=== PATIENT | male | born 1965 | race Caucasian/White ===

== ENCOUNTER → 2017-07-20 12:32 | Outpatient (CLI) | payer MEDICARE, MEDICAID, SELFPAY ==
--- NOTE | 2017-07-20 12:45 | MRI_ITS ---
STUDY: MRI RIGHT ANKLE WITHOUT CONTRAST REASON FOR EXAM: Heel pain since 2008, calcaneal fracture 2001. TECHNIQUE: Standardized fat and water weighted pulse sequences were obtained in all 3 orthogonal planes. COMPARISON: None. FINDINGS: Normal subcutis adipose space. Normal posterior tibialis tendon. Normal flexor digitorum longus tendon. Normal flexor hallucis longus tendon. Normal peroneus longus and brevis tendons. Normal tibialis anterior tendon. Normal extensor hallucis longus tendon. Normal extensor digitorum longus tendons. Normal Achilles tendon and teno-osseous insertion. Normal plantar fascia. There is chronic healed fracture deformity of the calcaneus. Normal intrinsic muscles of the rearfoot. Normal distal tibiofibular syndesmotic ligamentous complex. There is scarring with thickening of the anterior talofibular ligament (T2 axial image 14). Normal calcaneofibular and posterior talofibular ligaments. Normal subtalar ligaments and sinus tarsi. Normal deltoid ligamentous complexes. Normal plantar calcaneonavicular (spring) ligament. There is mild subchondral cystic change of the medial aspect of the superior talar dome (inversion recovery sagittal image 15; T2 coronal images 16, 17). There is arthrosis of the posterior subtalar joint with chondral thinning at the lateral aspect of the joint, subchondral cystic change/bone edema of the calcaneus (T2 coronal images 11-13; inversion recovery sagittal images 7-9) and mild bone edema of the lateral process of the talus (T2 coronal images 14, 15). Normal talonavicular articulation. Normal calcaneocuboid articulation. Normal navicular-cuneiform articulations. There is cystic change of the lateral malleolus (T2 coronal image 12). There is an os trigonum. MRI/Lower Ext Joint Only (Routine) IMPRESSION: Posterior subtalar arthrosis. Scarring of the anterior talofibular ligament. Chronic healed fracture deformity of the calcaneus. Mild subchondral cystic change of the medial aspect of the talar dome. Electronically Signed: Moy Shine MD at 10:26 EST Tel , Service support ,
== END ==
PROVIDERS: Visit Provider Podiatrist
DX: M13.871 Other specified arthritis, right ankle and foot (principal)
CPT/HCPCS: 73721

== ENCOUNTER → 2017-08-21 16:08 | Outpatient (CLI) | payer MEDICARE, MEDICAID, SELFPAY ==
[2017-08-21 18:38] LABS: Absolute Lymphocyte Count 2.53 X10^3/ul (0.83-4.51); Absolute Neutrophil Count 4.5 X10^3/uL (2.0-7.7); Basophil# 0.04 X10^3/uL; Basophil% 0.5 % (0-1); Eosinophil# 0.18 X10^3/uL; Eosinophils% 2.3 % (0-5); Hematocrit 43.6 % (40-54); Hemoglobin 15.3 g/dl (13.0-16.5); Lymphocyte # 2.53 X10^3/ul (4.0); Lymphocyte % 31.7 % (19-41); Mean Corp Hgb Conc 35.1 g/gl (32-36); Mean Corpuscular Hgb 34.2 pg (27.0-32.0); Mean Corpuscular Volume 97.5 fL (80-94); Monocyte# 0.68 X10^3/uL; Monocyte% 8.5 % (0-10); Neutrophil # 4.52 X10^3/uL (2.7-7.7); Neutrophil % 56.7 % (47-70); Platelet Count 284 K/mm3 (150-450); RBC Distribution Width CV 12.8 % (11.6-14.6); RBC Distribution Width SD 45.4 fl (35.1-43.9); Red Blood Count 4.47 M/mm3 (4.6-6.2)
[2017-08-21 18:39] LABS: POSITIVE COUNT NO; POSITIVE DIFFERENTIAL NO; POSITIVE MORPHOLOGY NO
[2017-08-21 18:46] LABS: Vitamin D,25 Hydroxy 23.5 ng/mL (29.95-100.01)
[2017-08-21 18:47] LABS: AST(SGOT) 12 U/L (15-37); Alanine Aminotransfer ALT/SGPT 16 U/L (16-61); Albumin, Serum 3.9 g/dL (3.2-5.0); Alkaline Phosphatase 92 U/L (45-117); Anion Gap 6 (5-15); BUN 14 mg/dL (7-18); BUN/Creat Ratio 13.2 RATIO (10-20); Calcium,Total 8.6 mg/dL (8.5-10.1); Chloride 107 mmol/L (98-107); Creatinine, Serum 1.06 mg/dL (0.70-1.30); EST Glomerular Filtration Rate 77 mL/min (>60); Est Glom Filt Rate - Afr Amer 94 mL/min (>60); Globulin 3.8 g/dL (2.2-4.2); Glucose 81 mg/dL (74-106); Potassium 3.7 mmol/L (3.5-5.1); Protein, Total 7.7 g/dL (6.4-8.2); Sodium Level 141 mmol/L (136-145)
== END ==
PROVIDERS: Family Provider Family Medicine; PCP Family Medicine; Visit Provider Family Medicine
DX: Z01.818 Encounter for other preprocedural examination (principal)
CPT/HCPCS: 36415; 80053; 82306; 85025

== ENCOUNTER 2017-09-04 05:43 | Day surgery (SDC) | payer MEDICARE, MEDICAID, SELFPAY ==
--- NOTE | 2017-09-03 | BON_PTH ---
PATIENT: JESSI MONTES V LOC: [facility] [place] U[place][id number] AGE/SX: 52/M ROOM: RE09/04/[address]: Dr. Agustin Haq DPM : 1965 BED: DIS: 09/04/2017 SPEC #: [id number] RECD: 09/04/17 13:39 STATUS: SHERRI MORENITA #: [id number] JIMMY: 09/03/17 00:[address]: Agustin Haq DEPT: SURGICAL PATHOLOGY RECD BY: Shaw Flannery ENTERED: 09/04/17 13:39 SP TYPE: Bone OTHR DR: Dr. 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 No evidence of acute osteomyelitis. AM:linda 09/09/17 MICROSCOPIC DESCRIPTION Slides are reviewed. GROSS DESCRIPTION Received in fixative is one container labeled with the patient's name and designated first and second metatarsal head, right foot. The specimen consists of a piece of paulino-white bone measuring 2.5 x 1.5 x 0.5 cm. Also present in the container are multiple pieces of bone measuring in aggregate 2 x 1.5 x 0.3 cm. The largest piece shows the articular surface with focal area of erosion. Clinical Business Analyst sections are submitted in one cassette after decalcification. / SJ:linda 09/04/17 TC:5 CPT: 75105, 26697
[2017-09-04 06:07] VITALS: BP 142/87; PULSE 58; RESP 16; TEMP 36.6; O2SAT 97; BMI 23.1
--- NOTE | 2017-09-04 06:51 | RAD_ITS ---
STUDY: X-RAY - RIGHT FOOT CLINICAL: Male, 52 years old. Intraoperative digital nondiagnostic images of arthroplasty. TECHNIQUE: 3 intraprocedural digital nondiagnostic view(s) of the foot. COMPARISON: None. FINDINGS: 11 seconds of fluoroscopy time were utilized for a total dose of 1.1432 cGy/cm. 3 intraoperative digital images show placement of arthroplasty at the second metatarsophalangeal joint. RAD/Foot min 3 Views IMPRESSION: Intraoperative digital nondiagnostic images as described. Electronically Signed: Chester Pierson MD at 11:14 EDT , Service support ,
[2017-09-04] MEDS: Cefazolin 2 GM in 0.9% Normal Saline 100 ML IV (07:29)
[2017-09-04] MEDS: Bupivacaine Mpf 0.5% 30 ML VIAL (07:35)
[2017-09-04 08:53] VITALS: BP 122/81; BP 142/87; PULSE 64; RESP 18; TEMP 36.4; O2SAT 95
--- NOTE | 2017-09-04 08:54 | PCM.DC.POD ---
Discharge Diet: Light diet - advance as tolerated Discharge Activity: May Not Drive, Use Crutches Weight Bearing Status: No weight bearing - No weightbearing right foot Keep extremity elevated above heart level: Right Leg - Keep right foot elevated for at least 50 minutes of every hour using pillows Call your doctor if your incision/area has: Continuous Slow Oozing, Sudden Increased Bleeding, Increased Redness, Foul Smelling Discharge Call your doctor if you observe: Fever of 101 or Higher, Shortness of breath, Chest pain, Increased palpitations (irregular heartbeat), Calf discomfort, Uncontrolled pain Cleanse incision/area with: Do not get Incision Wet, Keep Dressing Clean & Dry Allergies/Adverse Reactions: Allergies No Known Allergies Allergy (Verified 08/27/17 12:53) Medications to take at Discharge Hydrocodone/Acetaminophen [Vicodin 5-300 mg Tablet] 1 - 2 tab PO Q6H PRN PRN 3 Days #30 tab 09/04/17 The following prescriptions were given: Hydrocodone/Acetaminophen [Vicodin 5-300 mg Tablet] 1 - 2 tab PO Q6H PRN PRN 3 Days #30 tab PRN Reason: Pain Primary Care Physician: Mary Muñoz MD [Primary Care Provider] - Please Follow Up With: Agustin Haq DPM When: within 1 week or sooner if needed
--- NOTE | 2017-09-04 08:58 | OP.PCM_ITS ---
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 2nd MTPJ implant arthroplasty, right foot refrigerator glazier: Dr Elkins Type of Anesthesia:: General Specimen's removed: Bone/cartilage from 1st and 2nd metatarsal head, right foot - send to pathology Description of Procedure: Indications: This is a 52 year old gentleman with painful 1st and 2nd metatarsal phalagneal joints (MTPJ) due to osteoarthritis. Patient has pain, with limited range of motion. Osteoarthritis was seen on xrays of the foot. This has been treated with extensive conservative/nonsurgical management, but symptoms persists and he continues to have pain and symptoms. He elected to undergo surgery. We discussed the procedures. We reviewed the rationale of each as well as the possible benefits, risks, potential complications goals and expectations of each. This was discussed with him in great detail. Typical post op recovery was reviewed with him. Advised him the increased risks with smoking/ tobacco use, including nonhealing and nonunion, along with increased chance of all other potential complications. He expressed understanding and agreement, and related he was going to quit smoking. The consent forms were reviewed with him in detail, and he freely signed them. No guarantees were given. All of her questions were answered. Operative Procedure: The patient was brought back into the operating room and was placed on the operating room table in the supine position. He was carefully secured to the operating room table with a safety belt around his waist. A time out was performed and the patient was properly identified and the surgical plan was confirmed. The patient received 2 grams of IV Ancef for antibiotic prophylaxis. A well padded pneumatic tourniquet was applied around the right ankle. The patient did receive general anesthesia per the anesthesiologist. The skin was cleansed with 70% Isopropyl alcohol, and 10mL of 0.5% Bupivacaine plain was given as a 1st and 2nd ray block on the right foot. The right foot was scrubbed, prepped, draped in the usual aseptic fashion. A timeout was performed and the patient was properly identified and the surgical plan was confirmed. The right foot was elevated for 3 minutes and the right ankle pneumatic tourniquet was inflated to 250mmHg. Attention was directed to the right 1st MTPJ. There as noted to be significant limited range of motion present, with grinding consistent with hallux rigidus and osteoarthritis. A linear longitudinal skin incision was made overlying the dorsal medial 1st MTPJ, medial to the Extensor Hallucis Longus tendon using a 15 scalpel blade. Careful blunt dissection was completed down through the subcutaneous tissue layer, down to the 1st MTPJ capsule, which was incised with a 15 scalpel blade. The 1st MTPJ capsule was partially reflected exposing the dorsal, lateral, and medial aspect of the 1st metatarsal head and base of the hallux proximal phalanx. There were osteophytes around the dorsal 1st metatarsal head as well as the dorsal aspect of the base of the hallux proximal phalanx. The was a large dorsal eminence present to the dorsal 1st metatarsal head. The cartilage on the dorsal half of the 1st metatarsal head was worn away and unhealthy. There was a osteochondral lesion to the dorsal medial 1st metatarsal head. There were significant adhesions of the sesamoid apparatus. The adhesions of the sesamoid apparatus were freed up using a McGlamry elevator. Using a powered sagittal saw the dorsal eminence and the dorsal 1st metatarsal head was resected. This was sent to pathology for further evaluation. The osteophytes were resected using a bone cutting rongeur. Resection of the dorsal aspect of the 1st metatarsal head and osteophytes was confirmed using intra operative fluoroscopy, without the use of a p 3 armament/ordnance ima technician. The osteochondral lesion was drilled subchondrally using a 0.062 inch Kwire. At this time the 1st MTPJ was put through range of motion and it was gliding normally and smoothly, with no impingement present. There was now 90 degrees of dorsiflexion of the hallux, this was confirmed using intra operative flouroscopy without a doctor of radiology. The remaining joint appeared healthy and viable. The site was flushed out with copious amounts of normal saline solution. The joint capsule was reapproximated in neutral position using 3-0 Vicryl, the subcutaneous tissue layer was reapproximated using 3-0 Vicryl, the skin was reapproximated using 3-0 Monocryl. Attention was directed to the 2nd MTPJ, there was limited range of motion with some grinding present consistent with osteoarthritis. Using a 15 blade a linear longitudinal skin incision was overlying the dorsal lateral aspect of the 2nd metatarsal phalangeal joint (MTPJ). Careful blunt dissection was completed down through the subcutaneous layer to the dorsal 2nd MTPJ capsule. The capsule of the 2nd MTPJ was identified and was carefully incised dorsally, it was carefully reflected from the dorsal, medial and lateral aspect, exposing the 2nd metatarsal head. There was noted to be significant degenerative changes of the 2nd metatarsal head with yellow nonviable cartilage, with central cartilage defect. The cartilage on the base of the 2nd toe proximal phalanx did appear healthier and more viable. A guide wire was placed centrally and perpendicular to the 2nd metatarsal head and was placed down the shaft of the 2nd metatarsal. This was checked using intraoperative fluoroscopy. A step drill was used to prepare the screw hole to the 2nd metatarsal head. The 7mm taper post fixation component was inserted in standard fashion. A reamer was using to remove the nonviable damaged cartilage and bone to creat a socket for the implant. The excised bone / cartilage was sent to pathology (with the resected portion of the 1st metatarsal head) for further evaluation. All bone ledges were removed from the 2nd metatarsal head. The Arthrosurface implant was ready to be inserted. The Arthrosurface implant was placed into the prepared distal 2nd metatarsal surface. It was tamped in place. At this time, the implant was noted to be stable and in good position, this was confirmed using intra operative fluoroscopy without the use of a doctor of radiology. There was good smooth normal range of motion to the 2nd MTPJ with no grinding, popping or clicking. The site was flushed out with copious amounts of normal saline solution. The joint capsule was reapproximated using 3-0 Vicryl, the subcutaneous tissue layer was reapproximated using 3-0 Vicryl, and the skin was reapproximated using 3-0 Monocryl. Cavilon was painted to the sutured skin edges and steristrips were applied across the sutured skin incisions. All vital structure, including all vital neurovascular structures were properly identified and protected as necessary throughout the procedure. The pneumatic tourniquet was deflated, there was immediate return of vascular flow to the foot and all toes. CFT < 2 seconds to all toes, and had normal temperature gradient present. This remained like this for the rest entirety of the procedure. An additional 10mL of 0.5% Bupivacaine plain was given as a local nerve block around the 1st and 2nd rays of the right foot for post operative pain control. A dressing was applied which consisted of Betadine soaked adaptic, 4x4 gauze, kerlix and rm dressing to the right foot. The patient tolerated the above operative procedure well at the anesthesia well with no complications. The patient was transported to the recovery room with vital signs stable and in good condition. Post operative orders were placed. Post operative instructions were reviewed with patient today. No weightbearing right foot, keep right foot elevated for at least 50 minutes of every hour, keep dressing clean, dry and intact. Prescription for Vicodin 5mg/325mg was prescribed: 1-2 tabs PO q 6 hours PRN pain for pain control, as well as Augmentin 500/125mg PO q 12 hours for 5 days to help prevent an infection. He was dispensed a surgical shoe. Post operative xrays were obtained in the recovery room which confirmed 2nd MTPJ implant arthroplasty, 1st MTPJ cheilectomy arthroplasty. Intact implant 2nd metatarsal head. No post operative complications. Otherwise no acute changes and stable xrays. Grafts/Implants Used: 1 Arthrosurface implant 2nd MTPJ, right foot - Complications None
[2017-09-04 09:00] VITALS: BP 134/85; BP 142/87; PULSE 61; RESP 18; O2SAT 95
--- NOTE | 2017-09-04 09:13 | RAD_ITS ---
STUDY: X-RAY - RIGHT FOOT CLINICAL: Male, 52 years old. Postoperative evaluation after arthroplasty. TECHNIQUE: 3 view(s) of the foot. COMPARISON: None. FINDINGS: There is generalized osteopenia. There is an inferior calcaneal spur. Normal visualized subtalar, talonavicular, calcaneocuboid, tarsal and tarsometatarsal articulations. Normal metatarsi. There is mild arthrosis of the first metatarsal phalangeal and interphalangeal joints. An arthroplasty has been placed at the head of the second metatarsal at the metatarsophalangeal joint without complications. The soft tissue structures are unremarkable. RAD/Foot min 3 Views IMPRESSION: Osteopenia with postsurgical changes. No complications noted. Electronically Signed: Chester Pierson MD at 11:30 EDT , Service support ,
[2017-09-04 09:15] VITALS: BP 142/87; BP 147/85; PULSE 59; RESP 18; O2SAT 93
[2017-09-04 09:30] VITALS: BP 142/87; BP 144/94; PULSE 67; RESP 18; TEMP 36.7; O2SAT 94
[2017-09-04 10:16] VITALS: BP 142/87
== END 2017-09-04 10:32 | disposition home or self-care (01) ==
LOC: SDC 05:44 → AC 05:48
PROVIDERS: Family Provider Family Medicine; PCP Family Medicine; Visit Provider Podiatrist
PROC: (CPT 28289; principal; 2017-09-04 07:15)
DX: M19.071 Primary osteoarthritis, right ankle and foot (principal); M20.21 Hallux rigidus, right foot; F17.210 Nicotine dependence, cigarettes, uncomplicated
CPT/HCPCS: 01480; 28289; 28899; 73630; 76000; 88304; 88305; 88311; J7120; J2405

== ENCOUNTER 2017-11-19 09:00 | Outpatient (RCR) | payer MEDICARE, MEDICAID, SELFPAY ==
--- NOTE | 2017-10-22 12:54 | HP.PTEVAL_ITS ---
Patient's Visit Information JESSI MONTES is a 52 year old M referred to Physical Therapy by Agustin Najera with a diagnosis of S/P MTPJ OA/Implant. Date of Evaluation: 10/22/17 Physical Therapist: Jessi Deras PT, - Visit Plan Frequency: 2x /Week Duration: 4 Weeks Plan: Joint mobilization to TCJ, STJ medial glides. Passive stretching for ankle DF and great toe extension. Proprioception exercises. Modalities for swelling. No restrictions per pt. WBAT. Hx of patella fx and femoral nerve injury. - Subjective Subjective: This 52 y/o male presents to physical therapy with s/p 1st and 2nd MTP arthoplasty on done by Dr NAJERA. Pt reports 10 year history of R foot pain. He was NWB for 4 weeks. He transitioned to a walking boot and then progressed to a shoe in about 5 days. No worsening of pain when he transitioned to the shoe. Pt denies any other restrctions from the surgeon. He is having pain in the plantar surfaces of the 1st and 2nd MTC. He does have issues with swelling that gets worse after about an hour activity. Aggrevating factors: walking, weight bearing. Easing factors: rest. Not working, on disability. Surgical hx: severed femoral artery and nerve in 1988. Patella fx. - Pain R foot Pain Intensity (Out of 10): 4 Pain Intensity Range: 10 Comment: Worst pain 6/10. - Objective PALPATION: TTP 1st and 2nd MTP. GAIT: antalgic R LE, early heel off during stance, increased toe out on R LE. ROM: R ankle DF 10, PF 45, IV 17, EV 15, R great toe ext 15. L ankle DF 5, PF 45, IV 20, EV 15. ASSESSORY MOTION: hypomobile TC posterior glide, STC medial glide, metarsal glides. STRENGTH: B ankle gross 5/5 except for plantar flexors. Pain with eversion resistive test. CIRCUMFERENCE: R LE figure 8: 53 cm. - Goals Goal 1:: Pt will be independent with HEP Goal Time Frame: 2-4 Weeks Goal 2:: Pt will demonstrate 30 degrees of great toe extension to improve ambulation effiency. Goal Time Frame: 4-6 Weeks Goal 3:: PT will report ability to ambulate for 30 minutes without increase in pain. Goal Time Frame: 4-6 Weeks Goal 4:: Pt will perform single leg stance for 20 seconds to demonstrate improve proprioception for functional tasks. Goal Time Frame: 4-6 Weeks - Rehabilitation Potential Physical Therapy Diagnosis: Pt is a 52 y/o male s/p 1st and 2nd arthroplasty cheilectomy. He reports a 10 year history of R foot pain. He has a long history of other orthopedic issues that include R patella fx and femoral nerve injruy. He is WBAT in the shoe and has pain with weight bearing. Objective testing shows limited ROM in eversion and great toe extension and hypomobile assessory motion in ankle and mid foot. His activity restrictions include an inability to ambulate for long distances and weight bearing for longer durations. Pt will benefit from skilled therapy to address the above impairments. Rehabilitation Potential: Good - Anticipated Interventions Patient/Client Instruction: Educate patient on: Condition, Plan of Care For the Purpose of:: To decrease pain, To decrease swelling/inflammation, To increase ROM, To improve muscle performance and motor function, To increase tolerance to activity/condition/position, To increase flexibility/ROM Therapeutic Exercise to Include: Strength training, Endurance training, Balance training, Flexibilty training, Neuromotor development, Passive ROM, Active ROM For the Purpose of:: To decrease pain, To decrease swelling/inflammation, To increase ROM, To improve muscle performance and motor function, To improve ability to perform ADL's, To increase tolerance to activity/condition/position, To improve performance and independence with ADL's, To improve gait and locomotor functions, To increase flexibility/ROM, To improve endurance, To improve balance Manual Therapy Techniques to Include: Mobilization, Passive ROM, Soft tissue mobilization For the Purpose of:: To decrease pain, To decrease swelling/inflammation, To increase ROM, To improve muscle performance and motor function, To increase tolerance to activity/condition/position, To improve performance and independence with ADL's, To improve gait and locomotor functions, To increase flexibility/ROM, To improve endurance, To improve balance Cryotherapy (ice pack, ice massage): Yes Ultrasound (thermal/non thermal): Yes Vasopneumatic device: Yes For the Purpose of:: To decrease pain, To decrease swelling/inflammation, To increase ROM, To improve muscle performance and motor function, To increase tolerance to activity/condition/position, To improve performance and independence with ADL's, To improve gait and locomotor functions, To decrease soft tissue restriction, To increase flexibility/ROM, To improve endurance, To improve balance Thank you for the opportunity to evaluate your patient. For Medicare and Medicare HMO plans, please review the plan of care and approve it. It will need to be FAXED BACK to us at [phone] for Medicare purposes. Please let me know if there are questions or concerns regarding this plan of care. Physician Signature: Date:
--- NOTE | 2017-11-19 09:47 | HP.PTDCSUM_ITS ---
HP - PT D/C Summary It has been my pleasure to treat JESSI MONTES under orders from Agustin Haq , for the diagnosis of S/P MTPJ OA/Implant for a total of 9 visit(s). Discharge Date: 11/19/17 Please see the following information for a summary of their discharge status. - Subjective Subjective: Pt reports experiencing some tenderness prior to the session. Feels better than he did previous session. Received inserts from doctor but hasn't tried them yet. Feels confident to be discharged today. - Pain R foot Pain Intensity (Out of 10): 1 - Overall Improvement % Improvement: 75 - Objective Objective/Function: Pt has made good improvement with PT. He has met 3/4 goals. He reports 75% improvement. He is demonstrating 42 degrees of passive great toe extension, SLS for 20 seconds, and improved function on LEFS. His ambulation distance is still impaired but improving. HEP was updated to address continued impairments for the pt to work on at home. - Goals Goal 1:: Pt will be independent with HEP Goal Progress: Goal Met Goal 2:: Pt will demonstrate 30 degrees of great toe extension to improve ambulation effiency. Goal Progress: Goal Met Goal 3:: PT will report ability to ambulate for 30 minutes without increase in pain. Goal Progress: Progressing Goal 4:: Pt will perform single leg stance for 20 seconds to demonstrate improve proprioception for functional tasks. Goal Progress: Goal Met - Plan Plan: Discharge with HEP. - D/C Information Discharge Comments: Pt has met 3/4 PT goals. He is demonstrating 42 degrees of great toe extension, improved proprioception by holding SLS for 20 seconds, and reporting improved function on the LEFS. His ambulation distance is on of his main impairments but this has improved since starting PT. I would expect continue improvement by him adhering to an HEP that addresses his contiuned impairments. If there are questions or concerns regarding this patient's physical therapy, please feel free to call me at [phone]. Thank you for the referral of this patient. Sincerely, Jessi Deras, PT,
== END 2017-11-19 19:00 | disposition home or self-care (01) ==
LOC: PT 09:00
PROVIDERS: Family Provider Family Medicine; PCP Family Medicine; Visit Provider Podiatrist
DX: M19.071 Primary osteoarthritis, right ankle and foot (principal); Z98.890 Other specified postprocedural states
CPT/HCPCS: 97110; 97140; 97162; 97530

== ENCOUNTER → 2017-12-18 09:02 | Outpatient (CLI) | payer MEDICARE, MEDICAID, SELFPAY ==
--- NOTE | 2017-12-18 09:17 | BI_ITS ---
MAMMOGRAPHY - BILATERAL DIAGNOSTIC REASON FOR EXAM: Male, 52 years old. Left breast lump. PERTINENT HISTORY: Non-contributory. TECHNIQUE: Digital bilateral breast pati (3D mammographic acquisition) in the CC and MLO projections. 2-D mediolateral oblique (MLO) and craniocaudad (CC) views of both breasts were obtained. CAD: Full Field Digital Mammography with Computer Added Detection was performed. COMPARISON: None. FINDINGS: Breast Composition: The breasts are almost entirely fatty. There is a 9.6 mm x 1 cm well-defined nodular density in the retroareolar region of the left breast. This corresponds the palpable abnormality. Correlation with ultrasound is recommended. No other significant abnormalities are identified. BI/DIAG MAMM W/CAD, BILAT IMPRESSION: The palpable abnormality corresponds to a 0.96 cm x 1 cm well-defined nodular density in the retroareolar region of the breast. Correlation with ultrasound is recommended. ASSESSMENT CATEGORY: BIRADS Category 0: Incomplete. Need additional imaging evaluation. A letter regarding these results will be sent to the patient by the facility within 30 days. Approximately 10% of breast cancers are not detected by mammography. A normal mammogram should not delay biopsy of a clinically suspicious abnormality. Electronically Signed: Trever Rodriguez MD at 10:21 EDT Tel [phone], Service support ,
--- NOTE | 2017-12-18 09:50 | US_ITS ---
STUDY: ULTRASOUND BREAST - LEFT REASON FOR EXAM: Male, 52 years old. Palpable lump left breast. TECHNIQUE: Axial and longitudinal images of the LEFT breast were performed with a high resolution ultrasound transducer. COMPARISON: Comparison is made with prior mammogram done earlier in the day. FINDINGS: LEFT Breast: The palpable abnormality corresponds to a 1 cm x 1 cm x 0.7 cm cystic nodule with posterior acoustical enhancement. Low-level echoes are seen within it. This nodular density appears to abut the skin surface. This may represent a sebaceous cyst. Clinical correlation is recommended. US/Breast Limited Unilateral IMPRESSION: The palpable abnormality corresponds to a 1 cm x 1 cm x 0.7 cm cystic structure with low-level echoes within it. This abuts the overlying skin surface. A sebaceous cyst to be ruled out. Clinical correlation is recommended. ASSESSMENT CATEGORY: BIRADS Category 2: Benign. A letter regarding these results will be sent to the patient by the facility within 30 days. Electronically Signed: Trever Rodriguez MD at 10:17 EDT Tel [phone], Service support ,
== END ==
PROVIDERS: Family Provider Family Medicine; PCP Family Medicine; Visit Provider Family Medicine
DX: N63.21 Unspecified lump in the left breast, upper outer quadrant (principal)
CPT/HCPCS: 76642; 77062; 77066; G0279

== ENCOUNTER → 2018-01-04 10:33 | Outpatient (CLI) | payer MEDICARE, MEDICAID, SELFPAY ==
--- NOTE | 2018-01-04 08:45 | BRBX_PTH ---
PATIENT: JESSI MONTES V LOC: [facility] U#:[id number] AGE/SX: 60/M ROOM: RE01/04/[address]: Dr. Olga Berrios MD : 1965 BED: DIS: SPEC #: [id number] RECD: 01/04/18 10:34 STATUS: SHERRI MORENITA #: [id number] JIMMY: 01/04/18 08:[address]: Olga Berrios DEPT: SURGICAL PATHOLOGY RECD BY: Noel Obrien ENTERED: 01/04/18 10:39 SP TYPE: BREAST BX OTHR DR: Dr. Mary Muñoz MD Tissues: Left breast, NOS Procedures: Surgery Specimen Level III HEADER OPERATION: Excisional biopsy, left breast PRE-OP DIAGNOSIS: Left breast nodule; sebaceous cyst TISSUE SUBMITTED: Left breast tissue Ischemic time: <1 minute Fixation time: 10.5 hours MICROSCOPIC DIAGNOSIS Left breast nodule, excisional biopsy: Epidermal inclusion cyst. SJ:linda 01/05/18 MICROSCOPIC DESCRIPTION Slides are reviewed. GROSS DESCRIPTION Received in fixative is one container labeled with the patient's name and designated left breast tissue. The specimen consists of multiple irregular fragments of rubbery pink-paulino soft tissue that in aggregate measure 2.2 x 1.3 x 0.2 cm. The specimen is totally submitted in one cassette. / AM:lnida 01/04/18 TC:5 CPT: 24929
== END ==
PROVIDERS: Family Provider Family Medicine; PCP Family Medicine; Visit Provider Surgery
DX: N60.82 Other benign mammary dysplasias of left breast (principal)
CPT/HCPCS: 88304; 88305

== ENCOUNTER → 2018-01-13 15:02 | Outpatient (CLI) | payer MEDICARE, SELFPAY ==
[2018-01-13 16:56] LABS: AST(SGOT) 15 U/L (15-37); Alanine Aminotransfer ALT/SGPT 23 U/L (16-61); Albumin, Serum 3.9 g/dL (3.2-5.0); Alkaline Phosphatase 111 U/L (45-117); Bilirubin, Direct 0.08 mg/dL (0.00-0.30); Protein, Total 7.9 g/dL (6.4-8.2)
[2018-01-15 11:19] LABS: Hep C Antibodies 0.1 s/co ratio (0.0-0.9)
== END ==
PROVIDERS: Family Provider Family Medicine; PCP Family Medicine; Visit Provider Family Medicine
DX: R10.11 Right upper quadrant pain (principal)
CPT/HCPCS: 36415; 80076; 86803

== ENCOUNTER → 2018-03-15 14:56 | Outpatient (CLI) | payer SELFPAY ==
[2018-03-15 17:38] LABS: Absolute Lymphocyte Count 2.47 X10^3/ul (0.83-4.51); Absolute Neutrophil Count 4.1 X10^3/uL (2.0-7.7); Basophil# 0.05 X10^3/uL; Basophil% 0.7 % (0-1); Eosinophil# 0.17 X10^3/uL; Eosinophils% 2.3 % (0-5); Hemoglobin 15.4 g/dl (13.0-16.5); Lymphocyte # 2.47 X10^3/ul (4.0); Lymphocyte % 32.8 % (19-41); Mean Corp Hgb Conc 34.2 g/gl (32-36); Mean Corpuscular Hgb 33.6 pg (27.0-32.0); Mean Platelet Vol. 10.2 fl (6.2-12.0); Monocyte% 9.3 % (0-10); Neutrophil # 4.13 X10^3/uL (2.7-7.7); Neutrophil % 54.9 % (47-70); Platelet Count 270 K/mm3 (150-450); RBC Distribution Width CV 12.9 % (11.6-14.6); RBC Distribution Width SD 45.9 fl (35.1-43.9); Red Blood Count 4.59 M/mm3 (4.6-6.2); White Blood Count 7.5 K/mm3 (4.4-11.0)
[2018-03-15 17:44] LABS: AST(SGOT) 17 U/L (15-37); Alanine Aminotransfer ALT/SGPT 26 U/L (16-61); Albumin, Serum 3.9 g/dL (3.2-5.0); Alkaline Phosphatase 119 U/L (45-117); Anion Gap 5 (5-15); BUN 12 mg/dL (7-18); BUN/Creat Ratio 12.3 RATIO (10-20); Calcium,Total 8.5 mg/dL (8.5-10.1); Chloride 107 mmol/L (98-107); Creatinine, Serum 0.98 mg/dL (0.70-1.30); EST Glomerular Filtration Rate 85 mL/min (>60); Est Glom Filt Rate - Afr Amer 103 mL/min (>60); Glucose 88 mg/dL (74-106); Potassium 4.2 mmol/L (3.5-5.1); Protein, Total 7.9 g/dL (6.4-8.2); Sodium Level 141 mmol/L (136-145)
[2018-03-15 17:48] LABS: POSITIVE COUNT NO; POSITIVE DIFFERENTIAL NO; POSITIVE MORPHOLOGY NO
== END ==
LOC: MFPLAB 14:57
PROVIDERS: Family Provider Family Medicine; PCP Family Medicine; Visit Provider Family Medicine
DX: Z01.818 Encounter for other preprocedural examination (principal)
CPT/HCPCS: 36415; 80053; 85025

== ENCOUNTER 2018-04-02 09:17 | Day surgery (SDC) | payer MEDICARE, MEDICAID, SELFPAY ==
[2018-04-02] VITALS (9 sets, daily range): BP systolic 120–147; BP diastolic 70–99; PULSE 55–81; RESP 16–18; TEMP 36.2–36.5; O2SAT 93–98; BMI 22.9
--- NOTE | 2018-04-02 11:00 | RAD_ITS ---
STUDY: Fluoroscopic RIGHT ANKLE REASON FOR EXAM: Male, 52 years old. Subtalar joint fusion TECHNIQUE: 4 fluoroscopic view(s) of the ankle. COMPARISON: None. FINDINGS: 4 fluoroscopic images are obtained. There are 2 cortical screws transfixing the talar calcaneal joint. The fluoroscopy time recorded is 1 minute 28 seconds. RAD/Ankle min 3 Views IMPRESSION: Intraoperative imaging of the talar calcaneal fusion. Electronically Signed: Valentina Guzman MD at 19:21 EDT Tel , Service support ,
--- NOTE | 2018-04-02 11:00 | BON_PTH ---
PATIENT: JESSI MONTES V LOC: [facility] U#:[id number] AGE/SX: 52/M ROOM: RE04/02/[address]: Dr. Agustin Haq DPM : 1965 BED: DIS: 04/02/2018 SPEC #: [id number] RECD: 04/02/18 16:07 STATUS: SHERRI MORENITA #: [id number] JIMMY: 04/02/18 11:[address]: Agustin Haq DEPT: SURGICAL PATHOLOGY RECD BY: Noel Obrien ENTERED: 04/05/18 11:32 SP TYPE: Bone OTHR DR: Dr. 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 Exostosis of right ankle TISSUE SUBMITTED: Right foot exostosis MICROSCOPIC DIAGNOSIS Bone of right foot, exostosis: Fragments of bone with reparative and reactive change. AM:linda 04/08/18 MICROSCOPIC DESCRIPTION Slides are reviewed. GROSS DESCRIPTION Received in fixative is one container labeled with the patient's name and designated right foot exostosis. The specimen consists of multiple fragments of bone that in aggregate measure 1 x 1 x 0.3 cm. The entire specimen is submitted in one cassette after decalcification. / ANDERS:linda 04/05/18 TC:5 CPT: 94996, 23357
[2018-04-02] MEDS: Cefazolin 2 GM in 0.9% Normal Saline 100 ML IV (12:34)
[2018-04-02] MEDS: Bupivacaine Mpf 0.5% 30 ML VIAL (13:10)
--- NOTE | 2018-04-02 14:40 | OP.PCM_ITS ---
Report of Operation Date of Procedure: 04/02/18 Pre-Operative Diagnosis: Subtalar joint (posterior) arthritis, right. Exostosis right lateral malleolus Post-Operative Diagnosis: Same Surgery/Procedure Performed:: Right subtalar joint arthrodesis. Excision of exostosis right ankle Description of Surgical Findings:: Degenerative changes of the posterior subtalar joint, right Exostosis of the distal lateral malleolus, right certified orthotist practice manager: yes - Dr. 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 Pre-operative xrays and MRI confirmed post-traumatic arthritis. He has significant pain despite nonsurgical management (rest, activity modifications, changes in shoegear, bracing, anti-inflammatories, corticosteroid injections). He has seen Dr. Agarwal in the past as well, who also recommended subtalar joint arthrodesis. Symptoms persist and and are worsening which is affecting and limiting his daily activities. He has elected to proceed forward with surgical options at this time: subtalar joint arthrodesis and resection of the exostosis of the distal lateral malleolus. This has been discussed with him in great detail, we have discussed the possible benefits vs risks and potential complications. We have discussed and reviewed all alternative options. We reviewed and discussed the typical healing time and post operative course. All goals and expectations were discussed and reviewed. He expressed understanding and agreement, he was able to repeat these back. All of his questions were answered. Smoking cessation has been completed. The consent forms were reviewed with him and he freely signed them. No guarantees were given nor implied. Operative Procedure: The patient was brought back into the operating room and was placed on the operating table in the supine position. Patient was carefully secured to the operating room table with a safety belt around his waist. A time out was performed and the patient was properly identified and the surgical plan was confirmed. The patient received 2g of intravenous Ancef for antibiotic prophylaxis. The patient received general anesthesia per the anesthesiologist. A well padded pneumatic tourniquet was applied around his right thigh. The right lower extremity was scrubbed, prepped, and draped using strict aseptic technique. Attention was further directed to the right foot and ankle. There is limited range of motion with grinding and crepitus noted to the subtalar joint consistent with degenerative arthritis. Ankle join range of motion was checked with the knee extended and flexed and was noted to be normal dorsiflexion and plantarflexion. The right foot and ankle were elevated for 3 minutes and the right thigh pneumatic tourniquet was inflated in 300mmHg. Attention was directed to the lateral column were an incision was made overlying the sinus tarsi, from the distal fibula directed toward the 4th metatarsal base. This was done using a 15 blade. Careful dissection was completed down the extensor digitorum brevis muscle belly, which was visualized and was partially reflected superiorly, the lateral capsule and the interosseous ligaments of the subtalar joint were released. The sinus tarsi and subtalar joint (posterior, medial and anterior subtalar joint) were visualized. The subtalar joint cartilage was noted to be worn away, degenerative with bone on bone impingement all consistent with her osteoarthritis to the joint. The subtalar joint was debrided, and all remaining cartilage from the subtalar joint surfaces was removed down to bleeding bone. This was done with a curette and a small bur being sure not to cause osteonecrosis. The site was flushed out with copious amounts of normal saline solution. The joint surfaces were fenestrated to aid fusion using a small drill. The prepped arthrodesis site was packed with cancellous bone chips to also make up operator helper fusion. The heel and subtalar joint were placed in neutral position / vertical position and two 7.0mm cannulated FT compression Arthrex screws were placed across the prepped posterior subtalar joint. This was done using rigid open reduction internal fixation technique. In order to place the screws, a small skin incision was made to the posterior plantar heel and careful dissection was completed down to the posterior calcaneus. Once the screws were placed, there was noted to be good bone to bone compression and contact across the subtalar joint with the prepped subtalar joint surfaces in good alignment. The subtalar joint was rigid and stable. The screws were in good position. This was confirmed with intra-operative fluor oscopy. The surgical site was flushed out with copious amounts of normal saline solution. The subcutaneous tissue layers was reapproximated using 2-0 Vicryl and the skin was reapproximated using 4-0 Monocryl. Attention was directed to the distal lateral malleolus at the level of the exostosis. A skin incision was made overlying the exostosis and careful dissection was completed down to the exostosis. The exostosis was visualized and was resected using a bone cutting rongeur. This was sent to pathology as a specimen. The remaining bone and tissue to the areas was noted to be healthy and viable. The surgical site was flushed out with copious amounts of normal saline solution. The subcutaneous tissue layers was reapproximated using 2-0 Vicryl and the skin was reapproximated using 4-0 Monocryl. The thigh pneumatic tourniquet was deflated and there was immediate return of warmth and reperfusion to the lower extremity including to all digits of the foot; and CFT was noted to be < 2 sec to all five digits on the foot. Total tourniquet time was 94 minutes. Hemostasis was achieved. All vital structures including all vital neurovascular and tendon structures were properly identified, protected, and retracted as necessary throughout the above operative procedure. A dressing was applied which consisted of Betadine soaked adaptic, 4x4 gauze, Kerlix, Webril, and rm bandage and a well padded below the knee posterior splint secured with rm bandages and with the heel offloaded. The patient tolerated the above operative procedure well at the anesthesia well with no complication. The patient was transported to the recovery room with vital signs stable and in good condition. Post operative orders were placed. No weightbearing right foot, keep right foot elevated for at least 50 minutes of every hour, keep dressing and splint clean, dry and intact. Percocet 5mg/325mg tab : 1-2 tabs PO q 6 hours prn pain as well as Xarelto 10mg PO once daily for DVT prophylaxis was prescribed. The patient to follow up with me in 1 week, sooner if needed. Post operative xrays were obtained in the recovery room (3 views foot and ankle as well as calcaneal axial views) - there was noted to be subtalar joint arthrodesis in good alignment and hardware intact, good bone to bone compression in good alignment. No post operative complications seen, no acute problems or compilations seen. Grafts/Implants Used: Two Arthrex 7.0mm FT compression screws - Complications None
--- NOTE | 2018-04-02 14:42 | DCINST_ITS ---
Discharge Diet: Light diet - advance as tolerated Discharge Activity: May Not Drive Weight Bearing Status: No weight bearing - No weightbearing right foot/ankle Keep extremity elevated above heart level: Right Leg - Keep right foot elevated for at least 50 minutes of every hour using pillows, keep heel offloaded Call your doctor if your incision/area has: Continuous Slow Oozing, Foul Smelling Discharge Call your doctor if you observe: Fever of 101 or Higher, Coldness, Increased Pain, Shortness of breath, Chest pain, Calf discomfort, Uncontrolled pain Cleanse incision/area with: Do not get Incision Wet, Keep Dressing Clean & Dry Allergies/Adverse Reactions: Allergies No Known Allergies Allergy (Verified 03/26/18 10:26) Medications to take at Discharge Mushroom Extract 1 dose PO DAILY 03/26/18 Cefadroxil [Duricef] 500 mg PO Q12H 5 Days #10 cap 04/02/18 Oxycodone HCl/Acetaminophen [Percocet 5/325] 1 - 2 tab PO Q6H PRN PRN 3 Days #30 tab 04/02/18 Rivaroxaban [Xarelto] 10 mg PO DAILY 15 Days #15 tab 04/02/18 The following prescriptions were given: Oxycodone HCl/Acetaminophen [Percocet 5/325] 1 - 2 tab PO Q6H PRN PRN 3 Days #30 tab PRN Reason: Pain Cefadroxil [Duricef] 500 mg PO Q12H 5 Days #10 cap Rivaroxaban [Xarelto] 10 mg PO DAILY 15 Days #15 tab Primary Care Physician: Mary Muñoz MD [Primary Care Provider] - Test Results: Test results from this visit will be discussed in further detail at your follow- up appointment, if applicable. Please Follow Up With: Agustin Haq DPM When: within 1 week, sooner if needed
--- NOTE | 2018-04-02 15:01 | RAD_ITS ---
STUDY: X-RAY - RIGHT FOOT CLINICAL: Male, 52 years old. Post operative fusion TECHNIQUE: 3 view(s) of the foot. COMPARISON: None. FINDINGS: There are 2 cortical screws transfixing the talar calcaneal joint. There is a distal second digit replacement. There is been a postoperative resection of the distal fifth metatarsal. There is a splint overlying the bony structures limiting visualization. Allowing for the overlying material there is a lobulated appearance of the navicular bone with a possible os navicularis potentially pseudoarticulation with the talus. Normal visualized subtalar, calcaneocuboid, tarsometatarsal articulations. Postoperative metatarsophalangeal joint of the great toe. Normal tibial and fibular sesamoid bones. Normal interphalangeal joint of the great toe. Normal phalanges of the great toe. Normal second through fifth metatarsophalangeal joints. Normal interphalangeal joints and phalanges of the lesser toes. RAD/Foot min 3 Views IMPRESSION: Postoperative changes status post fusion of the calcaneal talar joint. Postoperative change of the second and first metatarsals. Allowing for the overlying material there an elongated appearance of the navicular bone with a possible os navicularis potentially pseudoarticulation with the talus. Electronically Signed: Valentina Guzman MD at 20:04 EDT Tel , Service support ,
--- NOTE | 2018-04-02 15:01 | RAD_ITS ---
STUDY: X-RAY - RIGHT CALCANEUS REASON FOR EXAM: Male, 52 years old. Arthrodesis TECHNIQUE: 2 view(s) of the calcaneus were obtained. COMPARISON: None. FINDINGS: There is a splint overlying the calcaneus. There are 2 long cortical screws transfixing the talocalcaneal joint. There is a visualized plantar spur. RAD/Calcaneus min 2 Views IMPRESSION: Status post fusion of the talar calcaneal joint. Electronically Signed: Valentina Guzman MD at 20:01 EDT Tel , Service support ,
--- NOTE | 2018-04-02 15:01 | RAD_ITS ---
STUDY: X-RAY - RIGHT ANKLE REASON FOR EXAM: Male, 52 years old. Subtalar joint lesion TECHNIQUE: 3 view(s) of the ankle. COMPARISON: None. FINDINGS: Normal visualized distal tibia and fibula. Normal medial and lateral malleoli. Normal tibiotalar articulation and ankle mortise. There is a subtalar joint fusion with 2 cortical screws transfixing the talocalcaneal joint space. There is overlying soft tissue swelling. There is a calcaneal spur. The soft tissue structures are unremarkable. RAD/Ankle min 3 Views IMPRESSION: Talocalcaneal fusion. Plantar spur. Electronically Signed: Valentina Guzman MD at 20:01 EDT Tel , Service support ,
== END 2018-04-02 17:19 | disposition home or self-care (01) ==
LOC: SDC 09:18 → AC 09:19
PROVIDERS: Family Provider Family Medicine; PCP Family Medicine; Referring Provider Podiatrist; Visit Provider Podiatrist
PROC: (CPT 27635; principal; 2018-04-02 10:45)
DX: M19.171 Post-traumatic osteoarthritis, right ankle and foot (principal); D16.31 Benign neoplasm of short bones of right lower limb; F17.210 Nicotine dependence, cigarettes, uncomplicated
CPT/HCPCS: 27635; 28725; 73610; 73630; 73650; 76000; 88304; 88305; 88311; C1713; J7120; J2405

== ENCOUNTER → 2018-07-05 09:11 | Outpatient (CLI) | payer MEDICARE, MEDICAID, SELFPAY ==
--- NOTE | 2018-07-05 09:20 | US_ITS ---
STUDY: ABDOMINAL ULTRASOUND - RIGHT UPPER QUADRANT REASON FOR VISIT: Male, 53 years old. Right upper quadrant pain. TECHNIQUE: Ultrasound evaluation of the right upper quadrant was performed with real-time and static charles-scale imaging. TECHNICAL QUALITY: Adequate. COMPARISON: None. FINDINGS: Liver: The liver measures 16.6 cm. There is normal echogenicity of the liver. The bile ducts are within normal limits. There is hepatic color flow. The direction of portal flow is hepatopetal. There is no demonstrated mass lesion. Gallbladder: Normal distended gallbladder. The gallbladder wall measures 2.8 mm. There is a negative sonographic Dumont's sign. There is no pericholecystic fluid. There are no gallstones. Common Bile Duct (C.B.D.): The common bile duct measures 1.6 mm. Pancreas: Normal size of the head, body and tail of the pancreas. There is normal echogenicity of the pancreas. There is no demonstrated pancreatic mass or cyst. Right Kidney: Normal size of the right kidney. The right kidney measures 11.8 cm in length. Normal renal cortex. There is no demonstrated renal mass or cyst. There is no right hydronephrosis. US/Abdomen Limited IMPRESSION: Within normal limits right upper quadrant ultrasound examination. Electronically Signed: Symone Jimenez MD at 17:04 EST Tel , Service support ,
== END ==
PROVIDERS: Family Provider Family Medicine; PCP Family Medicine; Referring Provider Family Medicine; Visit Provider Family Medicine
DX: R10.11 Right upper quadrant pain (principal)
CPT/HCPCS: 76705

== ENCOUNTER 2018-07-05 13:00 | Outpatient (RCR) | payer MEDICARE, MEDICAID, SELFPAY ==
--- NOTE | 2018-05-27 10:00 | HP.PTEVAL ---
Patient's Visit Information JESSI MONTES is a 53 year old M referred to Physical Therapy by Agustin Haq DPM with a diagnosis of s/p right subtalar joint arthrodesis. Date of Evaluation: 05/27/18 Physical Therapist: Myriam Restrepo DPT - Visit Plan Frequency: 2x /Week Duration: 4 Weeks Plan: Focus on ankle ROM and strength in standing (CAM BOOT- patient was educated to bring). Did not tolerate Vaso. Spoke to MD office 05/27- reports patient can progress to full weight bearing as tolerated- but needs to be in CAM walker when weightbearing- aware of compliance concerns - Subjective Findings: April 02 right 2/p subtalar joint arthrodesis- saw MD yesterday and everything was looking good. He is unsure of what his weight bearing status is. 2002 fell off a roof and shattered both ankles. MD wants him to wear a walking boot but he doesn't like it so he is wearing his shoes. Fully I before surgery- plans to get back to doing all of those things. Is currently driving. Pain is about a 5/10 right now- painful in the ankle joint. Pain radiates to the knee on the lateral aspect of the palencia and painful to the toes. Worst: 8/10 Agg: having the leg down. All the swelling goes down but it swells immediatly when he gets up. Eases: ice and elevation Best: 5/10. Does have big toe numbness.Can not walk very far before he has to stop and rest. Uses a cane when he is out of his house- sits in a w/c at home and does not walk around the house at all. The right knee is really bad and gives him a lot of problems. Sleep: disturbed- back sleeper. Work: disability. PMHx/Meds: no changes since he was at the hosptial for surgery - Objective Posture: FH, RS, Increased kyphosis- does correct with verbal cues but does not maintain. Gait: antalgic- decreased stance time on the right LE- wearing tennis shoes- straight cane. Girth: Malls:27.5, Figure 8 54cm, Mets 23 cm. Observation: incision healing well- no s/s of infection or gaping of the wound. ROM: DF: 5 degrees, PF: 30 degrees, Inv: 10 degrees, Ever: 5 degrees- most pain with inv and eversion. Strength: Knee: 4-/5 Hip: 4/5, Ankle: 4/5 throughout available range. Did not test WB secondary to no CAM boot - Goals Goal 1:: Patient will be I with HEP and progression Goal Time Frame: 4-6 Weeks Goal 2:: Patient will demo full AROM of the right ankle Goal Time Frame: 4-6 Weeks Goal 3:: Patient will SLS for 30 seconds on the right in CAM boot and progress to shoe as MD recommends Goal Time Frame: 4-6 Weeks Goal 4:: Patient will ambulate >300 feet with normalized gait pattern Goal Time Frame: 4-6 Weeks - Rehabilitation Potential Physical Therapy Diagnosis: Patient presents with hypomobility- he has decreased ROM, strength and muscular endurance s/p right subtalar joint arthrodesis Rehabilitation Potential: Fair - Anticipated Interventions Patient/Client Instruction: Educate patient on: Benefits of Fitness Program Therapeutic Exercise to Include: Strength training, Endurance training, Balance training, Agility training, Body mechanics, Postural training, Flexibilty training, Gait and locomotor training, Passive ROM, Active ROM, Dynamic Lumbar Stabilization For the Purpose of:: To improve muscle performance and motor function TENS: Yes Cryotherapy (ice pack, ice massage): Yes Thermo therapy (hot pack): Yes Ultrasound (thermal/non thermal): No Vasopneumatic device: No Thank you for the opportunity to evaluate your patient. For Medicare and Medicare HMO plans, please review the plan of care and approve it. It will need to be FAXED BACK to us at [phone] for Medicare purposes. For Medicare only, by signing this I certify the plan of care. Please let me know if there are questions or concerns regarding this plan of care. Physician Signature: Date:
--- NOTE | 2018-07-05 13:20 | HP.PTDCSUM ---
HP - PT D/C Summary It has been my pleasure to treat JESSI MONTES under orders from Agustin Haq DPM, for the diagnosis of s/p right subtalar joint arthrodesis for a total of 7 visit(s). Discharge Date: Please see the following information for a summary of their discharge status. - Subjective Subjective: The ankle is not as bad- when he is up and on it it swells up- which is normal according to MD. Is able to do all of his normal activity- just hard to get a big stride. Worst: 12/08 Best: 09/08. Weather really bothers him. Is planning to go get a compression stocking when he leaves here. - Pain R ankle Pain Intensity (Out of 10): 3 R knee Pain Intensity (Out of 10): 5 - Objective Objective/Function: Posture:maintains good posture in a hard back chair Gait: WFL- in tennis shoe Observation: incision healing well- no s/s of infection or gaping of the wound. ROM: DF: 12 degrees, PF: 50 degrees, Inv: 20 degrees, Ever: 15 degrees- no pain. Strength: Knee: 4/5 Hip: 4+/5, Ankle: 5/5. SLS: 30 seconds- increased muscle activation but no pain or LOB - Goals Goal 1:: Patient will be I with HEP and progression Goal Progress: Goal Met Goal 2:: Patient will demo full AROM of the right ankle Goal Progress: Goal Met Goal 3:: Patient will SLS for 30 seconds on the right in CAM boot and progress to shoe as MD recommends Goal Progress: Goal Met Goal 4:: Patient will ambulate >300 feet with normalized gait pattern Goal Progress: Goal Met - Plan Plan: Discharge to I HEP - D/C Information If there are questions or concerns regarding this patient's physical therapy, please feel free to call me at [phone]. Thank you for the referral of this patient. Sincerely, Myriam Restrepo DPT
== END 2018-07-05 19:00 | disposition home or self-care (01) ==
LOC: PT 13:00
PROVIDERS: Family Provider Family Medicine; PCP Family Medicine; Referring Provider Podiatrist; Visit Provider Podiatrist
DX: Z98.890 Other specified postprocedural states (principal)
CPT/HCPCS: 97110; 97162; 97164

== ENCOUNTER → 2018-07-13 09:51 | Outpatient (CLI) | payer MEDICARE, MEDICAID, SELFPAY ==
--- NOTE | 2018-07-13 09:59 | NM_ITS ---
CLINICAL: 53-year-old male with reported history of right upper quadrant abdominal pain and chronic nausea. RADIONUCLIDE HEPATOBILIARY SCINTIGRAPHY COMPARISON: Abdominal ultrasound report 07/05/2018 FINDINGS: Following the intravenous administration of 5.3 mCi of 99m Tc Mebrofenin, hepatobiliary images reveal: 1. Relatively prompt and homogeneous radiopharmaceutical concentration is noted by a normal sized liver. No parenchymal defects are identified. 2. Gallbladder activity is identified at 10 minutes post radiopharmaceutical administration. 3. Small intestinal tract is not visualized during 60 minutes of pre-CCK sequential image acquisition, small bowel is observed following cholecystokinin infusion. 4. Washout of the radiopharmaceutical by the hepatic parenchyma appears qualitatively normal. Cholecystokinin (0.02 ug/kg) was administered intravenously over a 30-minute period. The post CCK gallbladder ejection fraction calculated at 20 minutes following Cholecystokinin administration was noted to be 74.0 % (normal greater than 35%). During 30 minutes of post CCK imaging, there is no scintigraphic evidence of reflux of the radiotracer into the common hepatic duct or refilling of the gallbladder. There is questionable scintigraphic evidence of post CCK duodenal gastric reflux. NM/Hepatobilliary Img w/Pharm Int IMPRESSION: 1. A gallbladder ejection fraction calculated to be greater than 35% following the administration of Cholecystokinin makes the probability of functional hepatobiliary disease (gallbladder and/or sphincter of Oddi dyskinesia) and/or organic hepatobiliary disease (chronic acalculous cholecystitis and/or cystic duct syndrome) to be low. (Sofy France et al, Journal of Nuclear Medicine 32:1695, 1990). 2. There is potential scintigraphic evidence of post CCK duodenal-gastric reflux. (Wayne et al, Nucl Med Marj Marli Press pg. 35, 1980). Electronically Signed: Hima Fischer DO at 23:29 EST Tel , Service support ,
== END ==
PROVIDERS: Family Provider Family Medicine; PCP Family Medicine; Referring Provider Family Medicine; Visit Provider Family Medicine
DX: R10.11 Right upper quadrant pain (principal)
CPT/HCPCS: 78227; A9537; J2805

== ENCOUNTER → 2021-02-18 12:02 | Outpatient (CLI) | payer MEDICARE, SELFPAY ==
--- NOTE | 2021-02-18 12:08 | RAD_ITS ---
HISTORY: Left mid-posterior/axillary rib pain, NKI. TECHNIQUE: XR Ribs Unilateral W/ PA Chest Min 3 Views. # of images incl. paperwork: 5. COMPARISON: None. FINDINGS: CARDIOMEDIASTINAL BORDERS: Cardiac silhouette not enlarged.Mediastinal contour unremarkable. LUNGS: Radiographically clear. PLEURA: No pleural effusion or pneumothorax. OSSEOUS STRUCTURES: Nondisplaced left ninth rib fracture laterally. RAD/Ribs Uni Min 3V w/PA Chest IMPRESSION: Nondisplaced left ninth rib fracture. at 0940 Reported and signed by: Lisandra Arrington MD Electronically Signed: Lisandra Arrington MD at 9:38 EDT Tel , Service support ,
== END ==
PROVIDERS: PCP Family Medicine; Referring Provider Family Medicine; Visit Provider Family Medicine
DX: R07.89 Other chest pain (principal)
CPT/HCPCS: 71101

== ENCOUNTER → 2021-05-20 14:49 | Outpatient (CLI) | payer MEDICARE, SELFPAY ==
--- NOTE | 2021-05-20 14:52 | VDLE_ITS ---
Reason For Study: Right calf pain RIGHT LEFT CFV is compressible, spontaneous, phasic, CFV is compressible, spontaneous, phasic, competent and demonstrates normal competent, and demonstrates normal augmentation. augmentation. FV is compressible, spontaneous, phasic, competent and demonstrates normal augmentation. POP V is compressible, spontaneous, phasic, competent and demonstrates normal augmentation. T/P Trunk is compressible. PTV is compressible. RT PerV is compressible. Acute superficial vein thrombosis is noted in the right GSV from prox-distal thigh. Thrombus filled varicose veins noted in the right prox calf. Procedure This is a venous duplex using B-mode, color flow and spectral Doppler. Exam performed in department. A preliminary report was called and/or faxed to [facility]. VL/Venous Duplex US, Unilateral Interpretation Summary Deep veins of the right lower extremity are patent and compressible segmentally . There is no evidence of right lower extremity deep vein thrombosis. Valvular competence alana ears intact within the proximal deep venous system on the right . Acute superficial thrombophlebit is is noted in the right great saphenous vein from the proximal to distal thigh, as well as in sup erficial varicosities in the right proximal calf. Ordering Physician: Alycia Dubois Referring Physician: Mary Muñoz M.D. Performed By: Ann-Marie Medina RVT
== END ==
LOC: CVS 14:50
PROVIDERS: PCP Family Medicine; Visit Provider Nurse Practitioner Family
DX: M79.661 Pain in right lower leg (principal)
CPT/HCPCS: 93971

== ENCOUNTER 2021-07-02 06:36 | Outpatient (CLI) | payer MEDICARE, SELFPAY ==
--- NOTE | 2021-07-02 12:10 | STRESSREP ---
Stress Test Report Exercise mild cardial perfusion stress test. 56-year-old man with a history of chest pain. Stress protocol: Resting EKG demonstrates sinus bradycardia with a rate of 56 bpm normal intervals are noted resting blood pressure is 130/84 mmHg. The patient exercised according to the regular Vitaly protocol for total duration of 6 minutes. Patient completed stage II of the Vitaly protocol. The maximum heart rate attained was 137 bpm which was 84% of max impact at heart rate the maximum workload was 7 metabolic equivalents. At rest there were no ST or T wave changes noted to suggest ischemia and at peak exercise upsloping ST changes were noted with did not meet the criteria for ischemia. No clinical angina was noted the test was terminated due to bilateral calf pain and cramps. The peak blood pressure was 180/98 mmHg. Rate-pressure product was 24,100. Myocardial perfusion protocol. 11.0 mCi of technetium 99m sestamibi was injected at rest. The patient exercised according to regular Vitaly protocol for total duration of 6 minutes and at peak exercise 33.4 mCi of technetium 99m sestamibi was injected stress images were obtained stress and rest images were reconstructed and compared in the short axis vertical long and horizontal long axis. Gated images were also obtained per Perfusion SPECT analysis: Review of the stress images demonstrate normal uptake of tracer noted in all areas of the myocardium. The resting images similarly demonstrate normal uptake of tracer noted in all areas of the myocardium. No areas of reversibility are noted to suggest ischemia and no previous infarct is noted. Gated SPECT analysis: The gated ejection fraction is 65%. Conclusion: Normal exercise myocardial perfusion stress test at a moderate workload. Preserved ejection fraction.
== END 2021-07-02 23:59 | disposition short-term general hospital (02) ==
LOC: CVS 06:38
PROVIDERS: PCP Family Medicine; Referring Provider Family Medicine; Visit Provider Family Medicine
DX: R07.9 Chest pain, unspecified (principal)
CPT/HCPCS: 78452; 93017; A9500; A4216